=== PATIENT | male | born 1940 | race Caucasian/White ===

== ENCOUNTER 2016-09-05 01:27 | Day surgery (SDC) | payer MEDICARE ==
[~2016-09-05] VITALS: Ht 167.6 cm; Wt 72.6 kg
[~2016-09-05 01:27] MED LIST: AMLO10TA3 PO; GABA600T2 PO; NORT10SO PO; OMEP20CA11 PO
[2016-09-05] MEDS ORDERED: Propofol 10,000 mCg/mL 20 mL Inj ONE (01:28)
[2016-09-05] MEDS ORDERED: fentaNYL-PF 50 mCg/mL 2 mL Inj ONE (01:28)
[2016-09-05] MEDS ORDERED: Lactated Ringer's 1,000 ML IV ONE (06:00)
[2016-09-05 13:20] VITALS: BP 158/71; PULSE 65; RESP 16; O2SAT 99
[2016-09-05 14:49] VITALS: BP 94/42; PULSE 84; RESP 12; O2SAT 98
[2016-09-05 14:58] VITALS: BP 108/52; PULSE 83; RESP 12; O2SAT 98
--- NOTE | 2016-09-05 15:08 | PCM.HPANE ---
Patient Data Surgeon Admitting Provider: Attending Provider:Rogelio Sosa MD Primary Care Physician:Amanda White MD Other Provider:Alanna Templetoningham Anesthesia Reason for Visit Dysphagia Ht/WT & BMI Body Mass Index Allergies Coded Allergies: erythromycin ethylsuccinate (Verified Allergy, Severe, "MYCINS" CAUSE RASH , 10/25/15) tamsulosin (Verified Allergy, Unknown, 10/25/15) Past Anesthesia History Anesthesia History: Denies:: Abnormal Airway, Anesthesia Reactions, Difficult Intubation, Fam Anesthesia Reaction, Fam Malignant Hypertherm, Malignant Hyperthermia Diabetes History Hx Diabetes?: No MRSA MRSA: No Medications Blood Thinner: Aspirin Reported Medications Nortriptyline 10 Mg/5 Ml [id number] Mg PO 10/20/15 Amlodipine 10 Mg [id number] Mg PO DAILY Ref 0 10/20/15 Gabapentin 600 Mg Trhhwt044 Mg PO BID Ref 0 09/06/15 Omeprazole 20 Mg Capsule.dr20 Mg PO BID acid reflux Ref 0 02/10/15 History History of ENT Problems?: Yes HEENT History: Positive for:: Cataracts (S/P LT EXTRACTION (RECENTLY)) Dysphagia Denies:: Abnormal Airway Difficult Intubation Hearing Problem Denture Type: Full- Upper Teeth Condition: Within Normal Limits Hx of Heart Problems?: Yes Cardiovascular History: Positive for:: Cardiac Surgery (REMOTE HX OF ANGIOPLASTY) Chest Pain ([place] 20 YRS AGO W/O CURRENT PROBLEMS) Hypertension Denies:: AICD Atrial Fibrillation Congestive Heart Failure Pacemaker Valvular Heart Disease Hx of Respiratory Problem?: Yes Respiratory History: Denies:: Asthma COPD Cough Hemoptysis Pneumonia Tuberculosis Use of C-PAP Machine (SNORES) Hx Neurologic Problems?: No Neurological History: Positive for:: CVA (02/16/2015) Hx of GI Problems?: Yes Hx of Problems?: Yes Male Hx: Denies:: Prostate Problems Scrotal Mass Testicular Surgery Skin History: Positive for:: History Skin Disorders? (LG SEBACEOUS CYST ON BACK=CURRENT PROBLEMS OTHER JOSE. CYSTS PRESENT) Denies:: Pressure Ulcers Hx Musculoskeletal Problems?: Yes Musculoskeletal History: Denies:: Joint Replacement Hx of Psycho/Social Problems?: No Psycho Social History: Denies:: Anxiety Hx Depression Hx Surgeries?: Yes (Cervical fusion, rib resection, bone graft, ) Hx Any Other Health Problems?: Yes Other History: Denies:: Cancer Endocrine Disease Hospitalization Thyroid Disease History Blood Transfusions: Denies:: Blood Transfusions Hx Diabetes: No Hx Alcohol Use: NoHx Substance Use: No Smoking Status: Former Smoker Have You Smoked inLast 12 mo: No Stop/Bang Risk Assessment Category Category 1A: Patient has history of documented sleep apnea, and HAS NOT received any narcotic, sedative or anesthesia administration during this stay. Category 1B: Patient has history of documented sleep apnea, and HAS received any narcotic , sedative or anesthesia administration during this stay Category 2: Patient has SUSPECTED Obstructive Sleep Apnea, and HAS received any narcotic , sedative or anesthesia administration during this stay. Category 3: Patient has SUSPECTED Obstructive Sleep Apnea and HAS NOT received narcotic, sedative or anesthesia administration during this stay. Category 4: Outpatient in Procedural Areas with known sleep apnea or who screen positive for High Risk via the STOP/BANG questionnaire. Exam Exam Vital Signs Vital Signs Date Time Temp Pulse Resp B/P Pulse Ox O2 Delivery O2 Flow Rate FiO2 09/05/16 13:20 36.5 65 16 158/71 99 Room Air General Appearance: Alert, Oriented X3, Cooperative, No Acute Distress HEENT/AIRWAY: MP 2 Lungs: Clear to Auscultation, Normal Air Movement Heart: Exam Unremarkable, Regular Rate/Rhythm, No Murmurs/Rubs/Gallops Plan Impression Patient chart reviewed, patient interviewed and anesthestic plan with risks, benefits, and alternatives discussed, and informed consent obtained. ASA Physical Status: ASA3 Severe Disease Anesthetic Plan: MAC Bene/Risks/Altern/Consents: Yes HP Complete Prior to Induction: Yes Ron Skinner MD September 05, 2016 13:28
--- NOTE | 2016-09-05 23:11 | ENDO ---
[address] [address] ENDOSCOPY PROCEDURE PATIENT: KIRBY JAMIL : 1940 MR#: [id number] ADMIT: 09/05/2016 JOB ID: [id number] DATE: 09/05/2016 PRIMARY PROVIDER: Amanda White MD PROCEDURE: Esophagogastroduodenoscopy with balloon dilatation. INDICATIONS: A 76-year-old male with a history of stricture of the esophagus status post balloon dilatation. Biopsies were astonishingly negative for Gutierrez's but clinically this looks like Gutierrez's. She has had increasing dysphagia over the last 6-7 months. EQUIPMENT: GIF H 180 J. SEDATION: Monitored anesthesia as provided by Dr. Ron Skinner (for coronary artery disease.) COMPLICATIONS: None identified. PROCEDURE IN DETAIL: After the risks and benefits were explained, written and verbal informed consent was obtained. The patient was brought into the endoscopy suite and placed into the left lateral decubitus position. Sedation was achieved as above. The scope was introduced into the mouth through the bite block, and advanced ultimately to the second portion of the duodenum after dilatation was accomplished. Retroflexed views were pursued in the stomach. The stomach was decompressed. The scope removed from the patient who tolerated the procedure well. FINDINGS: 1. Esophagus: At around 25 cm from the incisors was an ulcerated stenosis, smooth in nature, this did not suggest underlying neoplasia. There was no mucosal irregularity. Proximal to the stricture, there was some mild ulceration, likely a consequence of some stasis change. The lumen size was perhaps somewhere in the 7 mm range. I could not get the endoscope to pass spontaneously. We dilated using an 8-10 balloon, holding it for 1 minute at each increment. I then swapped this out for the 10-12 balloon and dilated at 11 and 12 mm for 1 minute each. We then easily passed the scope down into the stomach. The scope was advanced to the duodenum, as described above. Below this stenosis in the esophagus appeared to be salmon-colored mucosa suggestive of underlying Gutierrez's as was previously suspected. The diaphragmatic pinchcock was at about 40 cm from the incisors and the GE junction appeared to be about 36 cm from the incisors. 2. Stomach: No significant pathology throughout including retroflexed views. 3. Duodenum: No significant pathology from the bulb through to the second portion. ENDOSCOPIC DIAGNOSES: 1. Ulcerated proximal esophageal stenosis, status post balloon dilatation to 12 mm. 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 3. Hiatal hernia. RECOMMENDATIONS: 1. The patient is encouraged to continue b.i.d. PPI. 2. Repeat EGD 2-3 weeks with anesthesia in a 45 minute slot for repeat dilatation and segmental esophageal biopsies. 3. Continue dietary caution as before. Pureed diet advancing to extremely well-chewed food only as tolerated.
== END 2016-09-05 23:59 | disposition home or self-care (01) ==
LOC: END 01:27
PROVIDERS: ATTEND Internal Medicine Gastroenterology
DX: K44.9 Diaphragmatic hernia without obstruction or gangrene (principal); K22.2 Esophageal obstruction; R13.10 Dysphagia, unspecified; I25.10 Atherosclerotic heart disease of native coronary artery without angina pectoris; I10 Essential (primary) hypertension; I63.9 Cerebral infarction, unspecified; G81.90 Hemiplegia, unspecified affecting unspecified side; M48.06 Spinal stenosis, lumbar region; K57.30 Diverticulosis of large intestine without perforation or abscess without bleeding; Z79.82 Long term (current) use of aspirin; Z87.891 Personal history of nicotine dependence
CPT/HCPCS: 43249; J3010; J7120

== ENCOUNTER 2016-10-01 13:44 | Day surgery (SDC) | payer MEDICARE ==
[~2016-10-01] VITALS: Ht 167.6 cm; Wt 72.6 kg
[~2016-10-01 13:44] MED LIST changes: +0.9% Sodium Chloride 1,000 ML IV SCH; +Lactated Ringer's 1,000 ML IV ONE; +Sodium Chloride LOK Flush 10 mL Syringe IV PRN; +fentaNYL-PF 50 mCg/mL 2 mL Inj IVPUSH PRN
[2016-10-01] MEDS ORDERED: fentaNYL-PF 50 mCg/mL 2 mL Inj ONE (13:45)
[2016-10-01] MEDS ORDERED: Propofol 10,000 mCg/mL 20 mL Inj ONE (13:45)
[2016-10-01] MEDS ORDERED: ASPI-973 PO (14:34)
[2016-10-01 14:35] VITALS: BP 150/71; PULSE 64; RESP 14; O2SAT 99
--- NOTE | 2016-10-01 15:24 | PCM.HPANE ---
Patient Data Date of Service: Oct 01, 2016 Surgeon Admitting Provider: Attending Provider:Rogelio Sosa MD Primary Care Physician:Amanda White MD Other Provider:Stoney Templeton Anesthesia Reason for Visit Esophageal Stricture Ht/WT & BMI Height (Feet): 5 Height (Inches): 6 Weight (Kilograms): 72.57 Body Mass Index 25.00 Allergies Coded Allergies: erythromycin ethylsuccinate (Verified Allergy, Severe, "MYCINS" CAUSE RASH , 10/25/15) tamsulosin (Verified Allergy, Unknown, 10/25/15) Past Anesthesia History Anesthesia History: Denies:: Abnormal Airway, Anesthesia Reactions, Difficult Intubation, Fam Anesthesia Reaction, Fam Malignant Hypertherm, Malignant Hyperthermia Diabetes History Hx Diabetes?: No MRSA MRSA: No Medications Blood Thinner: Aspirin Last Dose Blood Thinner: Sep 30, 2016 Reported Medications Aspirin 81 Mg Fahoth05 Mg PO DAILY Ref 0 10/01/16 Nortriptyline 10 Mg/5 Ml [id number] Mg PO 10/20/15 Amlodipine 10 Mg Fvtfzs25 Mg PO DAILY Ref 0 10/20/15 Gabapentin 600 Mg Gosays857 Mg PO BID Ref 0 09/06/15 Omeprazole 20 Mg Capsule.dr20 Mg PO BID acid reflux Ref 0 02/10/15 History History of ENT Problems?: Yes HEENT History: Positive for:: Cataracts (S/P LT EXTRACTION (RECENTLY)) Dysphagia (improved after last dilation) Denies:: Abnormal Airway Difficult Intubation Hearing Problem Denture Type: None Teeth Condition: Within Normal Limits Hx of Heart Problems?: Yes Cardiovascular History: Positive for:: Cardiac Surgery (REMOTE HX OF ANGIOPLASTY) Chest Pain ([place] 20 YRS AGO W/O CURRENT PROBLEMS) Hypertension Denies:: AICD Atrial Fibrillation Congestive Heart Failure Pacemaker Valvular Heart Disease Hx of Respiratory Problem?: No Respiratory History: Denies:: Asthma COPD Cough Hemoptysis Pneumonia Tuberculosis Use of C-PAP Machine (SNORES) Hx Neurologic Problems?: No Neurological History: Positive for:: CVA (02/16/2015) Hx of GI Problems?: Yes Hx of Problems?: Yes Male Hx: Denies:: Prostate Problems Scrotal Mass Testicular Surgery Skin History: Positive for:: History Skin Disorders? (LG SEBACEOUS CYST ON BACK=CURRENT PROBLEMS OTHER JOSE. CYSTS PRESENT) Denies:: Pressure Ulcers Hx Musculoskeletal Problems?: Yes Musculoskeletal History: Denies:: Joint Replacement Hx of Psycho/Social Problems?: No Psycho Social History: Denies:: Anxiety Hx Depression Hx Surgeries?: Yes (Cervical fusion, rib resection, bone graft, ) Hx Any Other Health Problems?: Yes Other History: Denies:: Cancer Endocrine Disease Hospitalization Thyroid Disease History Blood Transfusions: Denies:: Blood Transfusions Hx Diabetes: No Hx Alcohol Use: NoHx Substance Use: No Smoking Status: Former Smoker Have You Smoked inLast 12 mo: No Stop/Bang Treated for Sleep Apnea?: No Do You Have a CPAP Machine?: No S-Snoring: Do You Snore Loudly: No T-Tired: feel tired, fatigued: No O-Obsered: Observed not breath: No P-Blood Pressure: treated: No B- Body Mass Index > 35 kg/m2: No A- Age over 50: Yes N- Neck Large Circumference: No G- Gender Male: Yes MIGUEL Total Score: 2 Risk Assessment Category Category 1A: Patient has history of documented sleep apnea, and HAS NOT received any narcotic, sedative or anesthesia administration during this stay. Category 1B: Patient has history of documented sleep apnea, and HAS received any narcotic , sedative or anesthesia administration during this stay Category 2: Patient has SUSPECTED Obstructive Sleep Apnea, and HAS received any narcotic , sedative or anesthesia administration during this stay. Category 3: Patient has SUSPECTED Obstructive Sleep Apnea and HAS NOT received narcotic, sedative or anesthesia administration during this stay. Category 4: Outpatient in Procedural Areas with known sleep apnea or who screen positive for High Risk via the STOP/BANG questionnaire. Exam Exam Vital Signs Vital Signs Date Time Temp Pulse Resp B/P Pulse Ox O2 Delivery O2 Flow Rate FiO2 10/01/16 14:35 64 14 150/71 99 Room Air General Appearance: Alert, Oriented X3 HEENT/AIRWAY: MP 2 Lungs: Clear to Auscultation Heart: Exam Unremarkable, Regular Rate/Rhythm, No Murmurs/Rubs/Gallops Meds/Labs/Diagnostics Admission Meds Current Medications Lactated Ringer's (Lr) 1,000 ml @ 120 mls/hr Q8H20M ONCE IV Last administered on 10/01/16t 14:37; Start 10/01/16 at 05:00; Stop 10/01/16 at 13:19; Status DC Plan Impression Patient chart reviewed, patient interviewed and anesthestic plan with risks, benefits, and alternatives discussed, and informed consent obtained. ASA Physical Status: ASA3 Severe Disease Anesthetic Plan: GA Bene/Risks/Altern/Consents: Yes HP Complete Prior to Induction: Yes Justyn Astudillo MD Oct 01, 2016 15:16
[2016-10-01 16:07] VITALS: BP 113/59; PULSE 54; RESP 16; O2SAT 96
[2016-10-01 16:17] VITALS: BP 125/62; PULSE 57; RESP 16; O2SAT 96
--- NOTE | 2016-10-01 16:25 | PCM.ANEP1 ---
Post Anesthesia PACU Phase 1 Assessment Date of Service: Oct 01, 2016 Vital Signs Vital Signs Date Time Temp Pulse Resp B/P Pulse Ox O2 Delivery O2 Flow Rate FiO2 10/01/16 14:35 64 14 150/71 99 Room Air Anesthetic Administered: GA Level of Alertness: Awake, talking SERRANO's with Equal Strength: Yes Pain: No Nausea or Vomiting: No CV Function & Hydration Stable: Yes Airway Device: Lungs: Clear to Auscultation PACU Phase 2 Assessment Complications: No Follow up Care: No Patient Instructions Provided: N/A Justyn Astudillo MD Oct 01, 2016 16:24
[2016-10-01 16:27] VITALS: BP 137/65; PULSE 65; RESP 16; O2SAT 96
--- NOTE | 2016-10-02 00:52 | ENDO ---
[address] [address] ENDOSCOPY PROCEDURE PATIENT: KIRBY JAMIL : 1940 MR#: [id number] ADMIT: 10/01/2016 JOB ID: [id number] DATE: 10/01/2016 PRIMARY PROVIDER: Amanda White MD PROCEDURE: Esophagogastroduodenoscopy with balloon dilatation and biopsies. INDICATIONS: A 76-year-old male with mid esophageal stricture with significant clinical improvement following the last dilatation. He returns for further dilatation today. Historically, biopsies in the distal esophagus were negative for specialized intestinal metaplasia, although visually it appeared suggestive of a long segment of Gutierrez's. EQUIPMENT: GIF-H180-J. SEDATION: Monitored anesthesia as provided by Dr. Justyn Astudillo. COMPLICATIONS: None identified. PROCEDURE INFORMATION: After the risks and benefits were explained, written and verbal informed consent was obtained. The patient was brought into the endoscopy suite and placed into the left lateral decubitus position. Sedation was achieved using the above-stated medications with the addition of oxygen via nasal cannula. The scope was introduced into the mouth through the bite block, and advanced to the mid esophagus. I could not get through the mildly ulcerated stricture at 25 cm from the incisors, although lumen size was much more generous than at the last exam. We passed a wire downstream and then dilated at 10, 11 and 12 mm, holding the balloon for 1 minute at each setting. I was then able to easily advance the scope down into stomach all the way to the duodenum. We slowly withdrew and retroflexed views from within the stomach were accomplished. A 2nd dilatation was performed using the 12-15 mm balloon. We held it across the stricture at the 13.5 and 15 mm settings for 1 minute at each. I then pursued distal biopsies in the distal esophagus to once again evaluate for the presence of specialized intestinal metaplasia. The stomach was decompressed, the scope then removed from the patient who tolerated the procedure well. FINDINGS: 1. Duodenum: No pathology identified from the bulb through to the second portion. 2. Stomach: No ulcers, no mass lesions. No outlet obstruction. Fairly J-shaped stomach. Retroflexed views disclosed a small sliding hiatal hernia. 3. Esophagus: The GEJ was at about 35 cm from the incisors. The diaphragmatic pinchcock was at about 39 cm from the incisors. The salmon-colored mucosa appeared to extend all the way up to the level of the stricture at 25 cm from the incisors. I did not see any evidence of nodularity, erosive change or other pathology throughout the distal esophagus. We nonetheless took some repeat biopsies for exclusion of specialized intestinal metaplasia. The stenosis itself appeared smooth and slightly ulcerated in the 4 o'clock location, again thought to likely represent some stasis change. The balloon dilatation was successful and, after the final 15 mm setting, we very easily were able to pass the endoscope up and down the esophagus. ENDOSCOPIC DIAGNOSES: 1. Mid esophageal stricture, status post balloon dilatation to 15 mm. 2. 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 3. Hiatal hernia. RECOMMENDATIONS: 1. Await histopathology. 2. Continue extreme caution with meals. The patient is encouraged to gravitate towards the dysphagia puree type diet and advance to fully masticated food only as tolerated. 3. Continue twice daily omeprazole. 4. Repeat EGD in approximately 3-4 weeks for repeat dilatation.
--- NOTE | 2016-10-03 16:08 | PATH ---
SURGICAL PATHOLOGY Attending Physician:Joleen Chaudhry CASE STATUS: Signed Out PATIENT NAME: KIRBY JAMIL JR PID: [id number] : 1940 DATE COLLECTED:10/01/2016 00:00 SPECIMEN: Esophagus, Biopsy CLINICAL HISTORY: DYSPLASIA 1. DISTAL ESOPHAGUS BX FINAL DIAGNOSIS: 1.DISTAL ESOPHAGUS BIOPSY: FRAGMENTS OF COLUMNAR MUCOSA WITH NO DIAGNOSTIC ABNORMALITY. Negative for intestinal metaplasia. Negative for dysplasia and malignancy. No well-preserved squamous mucosa identified for evaluation. ICD10 K20.9 GROSS DESCRIPTION: Received in formalin, labeled with the patient' s name and "DE", are two fragments of landers, soft tissue ranging in size from less than 0.1 cm by less than 0.1 cm by less than 0.1 cm to 0.1 x 0.1 x 0.1 cm. All fragments are totally submitted in one cassette. ([id number]) MICRO DESCRIPTION: See diagnosis. ICD-9 CODES: CPT CODES: 1: 36054 Electronically Signed Out Maddi Sharif MD [facility] [address], [place] [address] Technical component performed at [facility], [address] [place] [address] Ave[address], [place], [address]
== END 2016-10-01 23:59 | disposition home or self-care (01) ==
LOC: END 13:44
PROVIDERS: ATTEND Internal Medicine Gastroenterology
DX: K22.2 Esophageal obstruction (principal); K22.70 Barrett's esophagus without dysplasia; K44.9 Diaphragmatic hernia without obstruction or gangrene; I10 Essential (primary) hypertension; I25.10 Atherosclerotic heart disease of native coronary artery without angina pectoris
CPT/HCPCS: 43239; 43249; J3010; J7120

== ENCOUNTER → 2016-11-06 | Day surgery (SDC) | payer MEDICARE ==
[~2016-11-06] VITALS: Ht 167.6 cm; Wt 75.0 kg
[~2016-11-06] MED LIST changes: -0.9% Sodium Chloride 1,000 ML IV SCH; +ASPI-973 PO; +Atropine 0.4 mg/mL Inj IVPUSH PRN; +DOCU-41 PO; +HYDR-4003 PO; +Lactated Ringer's 1,000 ML IV SCH; +MetoCLOpramide 5 mg/mL 2 mL Inj IVPUSH PRN; +Ondansetron 2 mg/mL 2 mL Inj IVPUSH PRN; +Propofol 10,000 mCg/mL 20 mL Inj ONE; -Sodium Chloride LOK Flush 10 mL Syringe IV PRN; -fentaNYL-PF 50 mCg/mL 2 mL Inj IVPUSH PRN
[2016-11-06 08:09] VITALS: BP 154/73; PULSE 63; RESP 16; O2SAT 100
--- NOTE | 2016-11-06 08:42 | PCM.HPANE ---
Patient Data Date of Service: Nov 06, 2016 Surgeon Admitting Provider: Attending Provider:Rogelio Sosa MD Primary Care Physician:Amanda White MD Other Provider:Stoney Templeton Anesthesia Reason for Visit Dysphasia Ht/WT & BMI Height (Feet): 5 Height (Inches): 6 Weight (Kilograms): 75 Body Mass Index 26.00 Allergies Coded Allergies: erythromycin ethylsuccinate (Verified Allergy, Severe, "MYCINS" CAUSE RASH , 11/06/16) tamsulosin (Verified Allergy, Unknown, 11/06/16) Past Anesthesia History Anesthesia History: Denies:: Abnormal Airway, Anesthesia Reactions, Difficult Intubation, Fam Anesthesia Reaction, Fam Malignant Hypertherm, Malignant Hyperthermia Diabetes History Hx Diabetes?: No MRSA MRSA: No Medications Blood Thinner: Aspirin Hypertension Medication: No Home Meds Incl Beta Miya: No Reported Medications Aspirin 81 Mg Gqswpd41 Mg PO DAILY Ref 0 10/01/16 Gabapentin 600 Mg Grlndk052 Mg PO BID Ref 0 09/06/15 Omeprazole 20 Mg Capsule.dr20 Mg PO BID acid reflux Ref 0 02/10/15 Discontinued Reported Medications Nortriptyline 10 Mg/5 Ml Txbnzlwo18 Mg PO 10/20/15 Amlodipine 10 Mg Zrjfzf89 Mg PO DAILY Ref 0 10/20/15 History History of ENT Problems?: Yes HEENT History: Positive for:: Cataracts (S/P LT EXTRACTION (RECENTLY)) Dysphagia (improved after last dilation) Denies:: Abnormal Airway Difficult Intubation Hearing Problem Denture Type: Full- Upper Teeth Condition: Within Normal Limits Hx of Heart Problems?: Yes Cardiovascular History: Positive for:: Cardiac Surgery (REMOTE HX OF ANGIOPLASTY) Chest Pain ([place] 20 YRS AGO W/O CURRENT PROBLEMS) Hypertension Denies:: AICD Atrial Fibrillation Congestive Heart Failure Pacemaker Valvular Heart Disease Hx of Respiratory Problem?: No Respiratory History: Denies:: Asthma COPD Cough Hemoptysis Pneumonia Tuberculosis Use of C-PAP Machine (SNORES) Hx Neurologic Problems?: No Neurological History: Positive for:: CVA (02/16/2015, slightly numbness in leg ) Hx of GI Problems?: Yes Hx of Problems?: Yes Male Hx: Denies:: Prostate Problems Scrotal Mass Testicular Surgery Skin History: Positive for:: History Skin Disorders? (LG SEBACEOUS CYST ON BACK=CURRENT PROBLEMS OTHER JOSE. CYSTS PRESENT) Denies:: Pressure Ulcers Hx Musculoskeletal Problems?: Yes Musculoskeletal History: Denies:: Joint Replacement Hx of Psycho/Social Problems?: No Psycho Social History: Denies:: Anxiety Hx Depression Hx Surgeries?: Yes (Cervical fusion, rib resection, bone graft, ) Hx Any Other Health Problems?: Yes Other History: Denies:: Cancer Endocrine Disease Hospitalization Thyroid Disease History Blood Transfusions: Denies:: Blood Transfusions Hx Diabetes: No Hx Alcohol Use: NoHx Substance Use: No Smoking Status: Former Smoker Have You Smoked inLast 12 mo: No Stop/Bang Treated for Sleep Apnea?: No Do You Have a CPAP Machine?: No Risk Assessment Category Category 1A: Patient has history of documented sleep apnea, and HAS NOT received any narcotic, sedative or anesthesia administration during this stay. Category 1B: Patient has history of documented sleep apnea, and HAS received any narcotic , sedative or anesthesia administration during this stay Category 2: Patient has SUSPECTED Obstructive Sleep Apnea, and HAS received any narcotic , sedative or anesthesia administration during this stay. Category 3: Patient has SUSPECTED Obstructive Sleep Apnea and HAS NOT received narcotic, sedative or anesthesia administration during this stay. Category 4: Outpatient in Procedural Areas with known sleep apnea or who screen positive for High Risk via the STOP/BANG questionnaire. Exam Exam Vital Signs Vital Signs Date Time Temp Pulse Resp B/P Pulse Ox O2 Delivery O2 Flow Rate FiO2 11/06/16 08:09 36.0 63 16 154/73 100 Room Air General Appearance: Alert, Oriented X3, Cooperative HEENT/AIRWAY: MP 2, Neck Movement (Slighly limited), Mouth Opening (Wide) Lungs: Clear to Auscultation, Normal Air Movement Heart: Regular Rate/Rhythm, Normal S1, Normal S2 Plan Impression Patient chart reviewed, patient interviewed and anesthestic plan with risks, benefits, and alternatives discussed, and informed consent obtained. NPO per Anesth. Guidelines: Yes ASA Physical Status: ASA3 Severe Disease Anesthetic Plan: MAC Bene/Risks/Altern/Consents: Yes HP Complete Prior to Induction: Yes Vini Kennedy MD Nov 06, 2016 08:13
[2016-11-06 09:06] VITALS: BP 87/56; PULSE 54; O2SAT 98
--- NOTE | 2016-11-06 09:18 | PCM.ANEP1 ---
Post Anesthesia PACU Phase 1 Assessment Date of Service: Nov 06, 2016 Vital Signs Vital Signs Date Time Temp Pulse Resp B/P Pulse Ox O2 Delivery O2 Flow Rate FiO2 11/06/16 09:06 36.1 54 87/56 98 Room Air 11/06/16 08:09 36.0 63 16 154/73 100 Room Air Anesthetic Administered: MAC Level of Alertness: Sleeping, hard to arouse SERRANO's with Equal Strength: No (baseline) Pain: No Nausea or Vomiting: No CV Function & Hydration Stable: Yes Airway Device: Oxygen Delivery: Room Air Lungs: Normal Air Movement PACU Phase 2 Assessment Complications: No Follow up Care: N/A Patient Instructions Provided: N/A Vini Kennedy MD Nov 06, 2016 09:18
[2016-11-06 09:21] VITALS: BP 115/54; PULSE 58; O2SAT 99
--- NOTE | 2016-11-06 09:33 | ENDO ---
[address] [address] ENDOSCOPY PROCEDURE PATIENT: KIRBY JAMIL : 1940 MR#: [id number] ADMIT: 11/06/2016 JOB ID: [id number] DATE: 11/06/2016 PRIMARY PROVIDER: Amanda White M.D. PROCEDURE: Esophagogastroduodenoscopy with biopsies. 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 However, under the microscope, he has not demonstrated specialized intestinal metaplasia. He was last dilated up to 15 mm and since then he has had a great clinical effect without any significant challenges with swallowing. He remains on omeprazole once per day. Repeat examination today is pursued to determine whether he needs further dilatation. EQUIPMENT: GIF H 180 J. SEDATION: Monitored anesthesia as provided by Dr. Vini Kennedy. COMPLICATIONS: None identified. PROCEDURAL INFORMATION: After the risks and benefits were explained, written and verbal informed consent was obtained. The patient was brought into the endoscopy suite and placed in the left lateral decubitus position. Sedation was achieved as above. The scope introduced into the mouth through the bite block, and advanced to the second portion of the duodenum. The scope was slowly withdrawn to carefully examine the mucosa for any defects or lesions. Retroflexed views were accomplished in the stomach. The stomach was decompressed. The scope removed from the patient who tolerated the procedure well. FINDINGS: 1. Duodenum: No pathology appreciated from the bulb through to the second portion. 2. Stomach: No outlet obstruction. No ulcers. No mass lesions. Hiatal hernia noted on retroflexed views. Otherwise, no significant pathology in the stomach. 3. Esophagus: The squamocolumnar junction definitely appeared to extend up into the tubular esophagus. The GE junction was at about 36 cm from the incisors. The pinchcock was at about 38 cm from the incisors. At this time, however, I did not appreciate any significant stenosis or stricturing. It was very easy to pass the scope all the way through the esophagus and I did not appreciate any obvious target for dilatation. There were some scattered erosions and even healing ulceration in the region of the previous dilatation and stricture. Photographs were taken and a couple more biopsies were acquired from the apex of what appeared to be Gutierrez's. We elected to not pursue dilatation today. ENDOSCOPIC DIAGNOSES: 1. Mid esophageal ulcerations and erosions. 2. Visual long segment Gutierrez's. 3. Hiatal hernia. RECOMMENDATIONS: 1. Await histopathology. 2. Continue completely well chewed food. 3. The patient is encouraged to take twice daily omeprazole considering the presence of erosions and ulceration still present. 4. A 24 hour pH on therapy to ensure sufficient acid control. 5. Followup in my office following the 24 hour pH to review clinical symptoms and determine the need for any future endoscopy. Most likely we will pursue this on an as needed basis.
--- NOTE | 2016-11-08 17:16 | PATH ---
SURGICAL PATHOLOGY Attending Physician:Joleen Chaudhry CASE STATUS: Signed Out PATIENT NAME: KIRBY JAMIL JR PID: [id number] : 1940 DATE COLLECTED:11/06/2016 17:04 SPECIMEN: Esophagus, Biopsy CLINICAL HISTORY: 1). ESOPHAGUS AT 26CM FINAL DIAGNOSIS: 1.ESOPHAGUS AT 26 CM, BIOPSY: INFLAMED PORTIONS OF COLUMNAR MUCOSA WITH NO DIAGNOSTIC ABNORMALITY. Negative for intestinal metaplasia by alcian blue studies; the control tissue stained appropriately. Negative for dysplasia and malignancy. ICD10 K20.9 GROSS DESCRIPTION: The specimen is received in one formalin filled container labeled with the patient's name, sublabeled "esophagus at 26 CM" and consists of 2 portions of tissue which aggregate to 0.2 x 0.2 x 0.2 CM. The specimen is entirely submitted in one cassette. 11/06/2016DC MICRO DESCRIPTION: See diagnosis. ICD-9 CODES: CPT CODES: 1: 78315, 64879 Electronically Signed Out Maddi Sharif MD [facility] [address], [place] [address] Technical component performed at [facility], [address] [place] [address] Ave[address], [place], [address]
== END | disposition home or self-care (01) ==
LOC: END 10-20 12:49
PROVIDERS: ATTEND Internal Medicine Gastroenterology
DX: K20.9 Esophagitis, unspecified (principal); K22.70 Barrett's esophagus without dysplasia; K44.9 Diaphragmatic hernia without obstruction or gangrene; R47.02 Dysphasia; I10 Essential (primary) hypertension; Z88.1 Allergy status to other antibiotic agents; Z88.8 Allergy status to other drugs, medicaments and biological substances; Z87.891 Personal history of nicotine dependence; Z79.899 Other long term (current) drug therapy; Z79.82 Long term (current) use of aspirin; Z86.73 Personal history of transient ischemic attack (TIA), and cerebral infarction without residual deficits
CPT/HCPCS: 43239; J7120

== ENCOUNTER 2016-11-07 08:44 | Emergency (ER) | payer MEDICARE ==
[~2016-11-07] VITALS: Ht 167.6 cm; Wt 72.7 kg
[~2016-11-07 08:44] MED LIST changes: -Atropine 0.4 mg/mL Inj IVPUSH PRN; -DOCU-41 PO; -HYDR-4003 PO; -Lactated Ringer's 1,000 ML IV ONE; -Lactated Ringer's 1,000 ML IV SCH; -MetoCLOpramide 5 mg/mL 2 mL Inj IVPUSH PRN; -Ondansetron 2 mg/mL 2 mL Inj IVPUSH PRN; -Propofol 10,000 mCg/mL 20 mL Inj ONE
[2016-11-07 08:47] VITALS: BP 165/73; PULSE 77; RESP 15; O2SAT 100
--- NOTE | 2016-11-07 09:05 | ED.REPORT ---
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 The pt had an EGD yesterday and was feeling fine until he woke up from a nap a few hours later, tried to get up and walk but fell to the ground. He associates the fall with severe, non-radiating "numbing and pulling pain" in his lumbar region. The pt had similar sx a couple of years ago, at which time he got a nerve stimulator implant. He only experiences the pain when standing and walking and reports relief when lying down.He took a Tylenol a couple of hours ago with little relief. The pt denies spasms, change in numbness in lower extremities from his CVA, dysuria, change in BM and any other pain post falling. The pt turned the implant in his back off after the fall. Nursing Notes Stated Complaint: DIFFICULTY WALKING Chief Complaint: General Complaint Nursing Notes Reviewed: Yes ([employer], [employer] not reconcieled) Allergies: Coded Allergies: erythromycin ethylsuccinate (Verified Allergy, Severe, "MYCINS" CAUSE RASH , 11/06/16) tamsulosin (Verified Allergy, Unknown, 11/06/16) Scheduled Aspirin (Aspirin) 81 Mg Tablet 81 MG PO DAILY Gabapentin (Gabapentin) 600 Mg Tablet 300 MG PO BID Omeprazole (Omeprazole) 20 Mg Capsule.dr 20 MG PO BID Scheduled PRN Docusate Sodium (Colace) 100 Mg Capsule 200 MG PO DAILY PRN PRN For Constipation Hydrocodone-Acetaminophen 5-325 mg (Hydrocodone-Acetaminophen 5-325 mg) 1 Each Tablet 0.5-2 TABLET PO Q4H PRN PRN For Pain General Time Seen by MD: 09:04 Chief Complaint Other (difficulty walking) Hx Obtained From: Patient Arrived By: Walk-in Sudden in Onset?: Yes Onset Occurred: Yesterday Symptom Duration: Since onset Location: : Back Quality: Painful (numbing and pulling pain) Radiation: : Does not radiate Severity: Current: No pain currently (while lying in bed) Severity: Maximum: Severe (when standing and walking) Recent Healthcare: No recent doctor visit Similar Sx Previous: Yes Past Medical History Past Medical History CAD, h/o ID Gutierrez's esophagus h/o CVA 01/2015 - Intracranial hemorrhage Past Surgical History esophagogstroduodenoscopy with biopsy (multiple EGD's, most recent 11/06/16 gastroesophageal junction, biopsy Coronary angioplasty Cervical fusion Rib resection h/o bone graft Nerve stimulator for back pain Reports: Cataract surgery Reports: Pacemaker insertion Smoking History Former Smoker Social History Alcohol Use: Denies alcohol use Drug Use: Denies drug use Other Social History: Good social support, Ambulatory Status Independent Review of Systems Reports: difficulty walking Denies: muscle spasms Denies: change in bowel movement Full Review of Systems Male: Denies Dysuria Musculoskeletal: Reports: Back pain Neurologic: Denies: Numbness (no new changes ) Complete sys rev & neg: except as marked. Physical Exam Vital Signs Vital Signs Date Time Temp Pulse Resp B/P Pulse Ox O2 Delivery O2 Flow Rate FiO2 11/07/16 11:30 65 18 125/50 97 Room Air 11/07/16 08:47 36.4 77 15 165/73 100 Room Air Initial VS: Reviewed, Vital signs normal Respiratory: Breath sounds normal, No respiratory distress Cardiovascular: Intact distal pulses Abdomen / GI: Soft, Non-tender, No guarding, No rebound, No distention Extremities: Vascular intact, Neuro intact, No swelling, No tenderness Skin: Warm, Dry, No cyanosis Neurologic: Alert, Oriented, Nonfocal General/Constitutional: Awake, Alert, No acute distress, Cooperative The pt is not in pain and reports feeling well. Not moving. Hoarse voice after a procedure yesterday. Back: Atraumatic, Straight leg raise neg Lower Extremity / Pelvis / MS: Atraumatic, Full range of motion, No swelling, Non-tender, No deformity, Neurologic intact, Vascular intact Chronic weakness in right leg. No drift. Chronic numbness in right leg compared to left leg. Ankle / Foot: Atraumatic, Full range of motion, No swelling, Non-tender, No deformity, Neurologic intact, Vascular intact Normal plantar and dorsiflexion of the foot. Interpretation & Diagnostics PROCEDURE: CT LUMBAR SPINE WITHOUT CONTRAST ([id number]) IMPRESSION: 1. Chronic L1 compression fracture resulting in approximately 40% loss of normal intervertebral height is stable compared to prior MRI obtained 12/31/11. 2. No acute vertebral body compression fractures. 3. Multilevel degenerative disease. 4. Multilevel facet arthropathy. Dictated by: Marychuy Saucedo MD, PhD on 11/07/2016 at 10:38 Approved by: Marychuy Saucedo MD, PhD on 11/07/2016 at 10:49 PROCEDURE: MRI LUMBAR SPINE WITHOUT CONTRAST ([id number]) IMPRESSION: 1. Multilevel degenerative disc disease. 2. Multilevel facet arthropathy. 3. Mild convex left scoliosis. 4. Trace L3-L4 degenerative spondylolisthesis. 5. Chronic L1 compression fracture stable compared to 12/31/11. No acute compression fractures. 6. Moderate L3-L4 and L4-L5 central canal narrowing. Mild L2-L3 central canal narrowing. 7. Mild right moderate left L1-L2 neural foramina appear severe right and moderate left L2-L3 and L3-L4 neural foraminal narrowing. Moderate right and severe left L4-L5 neural foraminal narrowing. Severe left L5-S1 neural foraminal narrowing. 8. L2-L3, L3-L4, L4-L5 and L5-S1 disc annulus fissures. Dictated by: Marychuy Saucedo MD, PhD on 11/07/2016 at 13:29 Approved by: Marychuy Saucedo MD, PhD on 11/07/2016 at 13:37 Lab Results Interpretation Result Diagram: 11/07/16 0932 11/07/16 0932 Test 11/07/16 09:32 White Blood Count 4.2th/mm3 (3.8-10.1) Red Blood Count 3.38mil/mm3 (4.40-5.80) Hemoglobin 11.3g/dL (13.8-17.2) Hematocrit 34.0% (41.0-50.0) Mean Corpuscular Volume 100.6fL (81-100) Mean Corpuscular Hemoglobin 33.4pg (27.0-35.0) Mean Corpuscular Hemoglobin Concent 33.2% (32.0-37.0) Red Cell Distribution Width 13.9% (12.3-15.4) Platelet Count 205bil/L (150-400) Neutrophils (%) (Auto) 51.2% (40-74) Lymphocytes (%) (Auto) 33.9% (14-46) Monocytes (%) (Auto) 12.0% (4-12) Eosinophils (%) (Auto) 2.2% (0-5) Basophils (%) (Auto) 0.2% (0-3) Prothrombin Time 10.0sec (8.1-12.5) Prothromb Time International Ratio 0.94ratio Sodium Level 144mEq/L (134-144) Potassium Level 4.0mEq/L (3.5-5.2) Chloride Level 106mEq/L (97-108) Carbon Dioxide Level 22mmol/L (18-29) Blood Urea Nitrogen 18mg/dL (8-27) Creatinine 1.04mg/dL (0.76-1.27) Estimat Glomerular Filtration Rate 74mL/min (>59) Glucose Level 184mg/dL (60-99) Calcium Level 8.9mg/dL (8.5-10.1) Total Bilirubin 1.1mg/dL (0.0-1.2) Aspartate Amino Transf (AST/SGOT) 16U/L (0-50) Alanine Aminotransferase (ALT/SGPT) 18U/L (0-44) Alkaline Phosphatase 66U/L (25-160) Total Protein 6.7g/dL (6.4-8.4) Albumin 3.9g/dL (3.4-5.0) Lab Results Interpretation: CBC normal CMP normal Re-Eval/Medical Decision Med Decision/Clinical Course This is a 76-year-old male presents with severe intractable back pain anytime he tries to immediately come to the point he is now unable to immediately. He reports he had an uneventful endoscopy yesterday, walked home following the procedure, took a nap, but when he got up he had terrible lumbar back pain, reports any time he gets up or moves his terrible back pain, as has been unable to and weight since. He denies bowel or bladder dysfunction, he denies new numbness or weakness-he has some chronic right lower extremity neuropathy following a stroke which she is on gabapentin., Reports no interval change. He reports at present lying in the gurney has no discomfort until or unless he tries to stand up and/or ambulate. He has had problems with back pain before and has a nerve stimulator, reports he has been doing very well for years since has been in place. He denies any recent injury. He denies fevers or chills or risk factors for epidural abscess. On exam lying flat he is comfortable, although he has pain with movement. He has midline lumbar discomfort. He can raise his legs, plantarflex dorsiflex, he has decreased sensation in the right leg which she says is chronic and unchanged-but he does not have gross deficits. Does however have moderate pain required titrated Dilaudid in the department. A CT was obtained with redemonstration of an old compression fracture, but no clear acute pathology. Given the severity pain and MRI was obtained, no acute pathology (a number of chronic findings are present) is identified. No findings of an acute neurosurgical emergency, no findings of an acute spinal infection. The patient has failed a PT evaluation in terms of road testing. He again comfortable at rest, but unable to and later function-and therefore admission for pain control is warranted. However, when I presented this to them-both patient and insisted would like to try going home. The and the patient indicate that they have a small home, the is comfortable trying to manage him at home, indicates he has a walker-dependent they will return if they have any difficulties. He is taking hydrocodone previously, in small doses and often takes only half a pill if needed-would like to try that, with the understanding that if he still having intractable pain, or is not safe at home and will return to the emergency department. The patient states intact decisional capacity, and the is in agreement that they would like to try at home-I do not think that is unreasonable. Routine precautions, return precautions reviewed. It was emphasized that they are having any difficulty or feel it is unsafe at home that they should return to the emergency department they agreed. Source of Hx: Old records Time of Eval: 15:08 Re-Evaluation/Progress Note: Rechecked pt. Discussed lab results, imaging results and diagnosis. He refuses admission. Discussed the plan to discharge. Pt understands and agrees with the plan. F/U instructions and RTER warning given. All questions addressedHe refuses admission. Consultation : Referral / Consult Name: Rogelio Sosa MD Call Returned at: 12:06 Cardiology Nurse Practitioner: Agrees with eval, Agrees with plan Note: Dr. Sosa, GI, agrees the pt's sx are not related to his procedure. Differential Diagnosis: Negative: Acute coronary syndrome, Diabetes mellitus, G -tube repair/replacement, Malingering, Medication refill, Mood disorder, Neutropenia, Pneumonia, Syncope, Tonsillitis, acute Counseled Regarding: Diagnosis, Lab results, Need for follow-up, When/why to return to ED Discharge & Departure Primary Impression: Back pain Back pain location: low back pain Chronicity: chronic Back pain laterality : unspecified Sciatica presence: unspecified whether sciatica present Qualified Code: M54.5 - Low back pain Disposition: Home (Patient declined hospitalization) Discharge Condition All VS Reviewed: Yes Additional Instructions: 1. No acute injury was appreciated on CT scan or MRI. 2. No heavy lifting - other activities as tolerated, but take it very easy. Use the walker. We are very concerned about you as you did not have much mobility on evaluation here in the ED, but you have declined hospitalization at this time. If you find that you are not safe or able to manage at home - RETURN to the emergency department! (Call 911 if needed!) 3. You can take hydrocodone/APAP 5/325 1/2 tab up to 1 (or 2) tabs every 4-6 hours. Note: This medication contains an narcotic and causes drowsiness. No driving or operating machinery while taking. Use sparingly, and only if needed. This medicine also can cause constipation-I recommend taking a stool softener daily while using. 4. Return to the emergency department if new, worsening or uncontrolled symptoms occur. 5. Follow up with Dr. White. Call for an appointment. Referrals: Amanda White MD (PCP) Scribe Attestation Portions of this note were transcribed by Paul San. I,, personally performed the history, physical exam and medical decision-making;I reviewed and confirmed the accuracy of the information in the transcribed note. Signed by Thomas Young. 11/07/16 15:48 copies to: Amanda White MD, Matthew F MD Nov 07, 2016 09:05 Paul San Nov 07, 2016 09:09
[2016-11-07] MEDS ORDERED: HYDROmorphone 0.5 mg/0.5 mL iSecure Syringe IVPUSH PRN (09:20)
[2016-11-07] MEDS ORDERED: Ondansetron 2 mg/mL 2 mL Inj IVPUSH ONE (09:20)
[2016-11-07 09:40] LABS: BASOPHILS % (AUTO) 0.2 % (0-3); EOSINOPHILS % (AUTO) 2.2 % (0-5); Mean Corpuscular Hemoglobin 33.4 pg (27.0-35.0); Mean Corpuscular Volume 100.6 fL (81-100); NEUTROPHILS % (AUTO) 51.2 % (40-74); Platelet Count 205 bil/L (150-400)
[2016-11-07 10:04] LABS: INR 0.94 ratio
--- NOTE | 2016-11-07 10:51 | DRSVH ---
PROCEDURE: CT LUMBAR SPINE WITHOUT CONTRAST ([id number]) INDICATIONS: back pain, fall TECHNIQUE: Noncontrast 3 mm thick sections acquired from the T12 level to the sacrum. Sagittal and coronal refo rmats were constructed. For radiation dose reduction, the following was used: automated exposure co ntrol. COMPARISON: [facility], MR, LUMBAR SPINE W/O CONTRAST, 12/31/2011, 13:03. FINDINGS: Image quality: Excellent. Bones: There is trace L3-L4 and L4-L5 degenerative spondylolisthesis. Mild convex left scoliosis is noted. Loss of height noted in the L1 vertebral body compatible anterior column compression fracture which is stable in appearance compared to prior MRI obtained 12/31/2011. No acute vertebral body comp ression fractures. No suspicious lytic or blastic bony lesions. Multilevel facet arthropathy noted. No pars defects. Soft tissues: Multilevel degenerative changes noted. No retroperitoneal masses or hematomas. Visual ized aorta is normal in caliber. IMPRESSION: 1. Chronic L1 compression fracture resulting in approximately 40% loss of normal intervertebral heigh t is stable compared to prior MRI obtained 12/31/11. 2. No acute vertebral body compression fractures. 3. Multilevel degenerative disease. 4. Multilevel facet arthropathy. Dictated by: Marychuy Saucedo MD, PhD on 11/07/2016 at 10:38 Approved by: Marychuy Saucedo MD, PhD on 11/07/2016 at 10:49
[2016-11-07 11:30] VITALS: BP 125/50; PULSE 65; RESP 18; O2SAT 97
--- NOTE | 2016-11-07 13:40 | DRSVH ---
PROCEDURE: MRI LUMBAR SPINE WITHOUT CONTRAST ([id number]) INDICATIONS: back pain TECHNIQUE: Noncontrast sagittal T1 spin echo and T2 fast echo, sagittal STIR, axial T1 and T2 fast spin echo thr ough the lumbar spine. In cases with scoliosis, additional coronal T2 fast spin echo may be performe d. COMPARISON: [facility], MR, LUMBAR SPINE W/O CONTRAST, 01/23/2010, 9:04. [facility], MR, LUMBAR SPINE W/O CONTRAST, 12/31/2011, 13:03. [facility], CT, CT CERVIC AL SPINE WO CON, 02/10/2015, 9:17. FINDINGS: Image quality: Excellent. Alignment and Curvature: There is trace L3-L4 anterolisthesis. There is mild convex-left scoliosis w hich is stable compared to prior examinations. Bone Marrow: Mild reactive endplate changes noted adjacent to the L2-L3, L3-L4, L4-L5 and L5-S1 discs . Anterior wedging of the L1 vertebral body compatible with chronic compression fractures stable comp ared to prior MRIs. No acute vertebral body compression fractures. Spinal Cord: Conus medullaris terminates at the T12-L1 disc level. Visualized cord demonstrates nor mal signal and size. Paraspinous Soft Tissues: No paravertebral masses. L1-L2: Loss of the signal. Mild, diffuse disc bulge. Left foraminal disc protrusion superimposed on d iffuse disc bulge. No central stenosis. Mild right and moderate left neural foraminal narrowing secon cristina to disc disease. L2-L3: Loss of disc signal and slight loss of disc height. Mild, diffuse disc bulge. Focal high densi ty zones noted and is compatible with fissures. Mild bilateral facet hypertrophy. Mild central canal secondary to disc disease and facet hypertrophy. Severe right and moderate left neural foraminal narr owing secondary to disc and facet disease. L3-L4: Loss of disc signal and height. Mild, diffuse disc bulge. Focal high intensity zones are noted in the posterior annulus compatible with a fissure. Moderate bilateral facet hypertrophy. Moderate n arrowing of the central canal secondary to disc disease and facet hypertrophy. Severe right and moder ate left neural foraminal narrowing secondary to disc and facet disease. L4-L5: Loss of disc signal and height. Mild, diffuse disc bulge with small central disc protrusion brower perimposed on diffuse disc bulge. Focal high intensity zone noted in the posterior annulus compatible with a fissure. Mild right and severe left facet hypertrophy. Moderate narrowing of the central miguel angel l secondary to disc disease and facet hypertrophy. Moderate right and severe left neural foraminal na rrowing secondary to disc and facet disease. L5-S1: Loss of disc space signal. Mild, diffuse disc bulge. Mild bilateral facet hypertrophy. Focal h igh density zone noted in the posterior annulus compatible with fissures. No central stenosis. Severe left neuroforaminal narrowing secondary to disc and facet disease. Right neural foramen is widely pa tent. IMPRESSION: 1. Multilevel degenerative disc disease. 2. Multilevel facet arthropathy. 3. Mild convex left scoliosis. 4. Trace L3-L4 degenerative spondylolisthesis. 5. Chronic L1 compression fracture stable compared to 12/31/11. No acute compression fractures. 6. Moderate L3-L4 and L4-L5 central canal narrowing. Mild L2-L3 central canal narrowing. 7. Mild right moderate left L1-L2 neural foramina appear severe right and moderate left L2-L3 and L3- L4 neural foraminal narrowing. Moderate right and severe left L4-L5 neural foraminal narrowing. Sever e left L5-S1 neural foraminal narrowing. 8. L2-L3, L3-L4, L4-L5 and L5-S1 disc annulus fissures. Dictated by: Marychuy Saucedo MD, PhD on 11/07/2016 at 13:29 Approved by: Marychuy Saucedo MD, PhD on 11/07/2016 at 13:37
--- NOTE | 2016-11-07 14:52 | NUR ---
Evaluation completed. Please go to "Notes" then click on "Assessments and Notes" (bottom left corner of screen). Then select appropriate discipline tab on top of screen.
[2016-11-07] MEDS ORDERED: HYDROcodone-APAP 5-325 mg Tablet PO ONE (15:20)
[2016-11-07] MEDS ORDERED: HYDR-4003 PO (15:27)
[2016-11-07] MEDS ORDERED: DOCU-41 PO (15:27)
[2016-11-07 15:56] VITALS: BP 167/50; PULSE 72; RESP 16; O2SAT 100
== END 2016-11-07 15:57 | disposition home or self-care (01) ==
LOC: SED 08:44
DX: M54.5 Low back pain (principal); R26.2 Difficulty in walking, not elsewhere classified; G62.9 Polyneuropathy, unspecified; I25.10 Atherosclerotic heart disease of native coronary artery without angina pectoris; I25.2 Old myocardial infarction; I10 Essential (primary) hypertension; Z96.9 Presence of functional implant, unspecified; Z86.73 Personal history of transient ischemic attack (TIA), and cerebral infarction without residual deficits; Z87.19 Personal history of other diseases of the digestive system; Z95.0 Presence of cardiac pacemaker; Z98.890 Other specified postprocedural states; Z87.891 Personal history of nicotine dependence; Z86.79 Personal history of other diseases of the circulatory system; Z79.82 Long term (current) use of aspirin; Z88.1 Allergy status to other antibiotic agents; Z88.8 Allergy status to other drugs, medicaments and biological substances
CPT/HCPCS: 36415; 72131; 72148; 80053; 85025; 85610; 96374; 97162; 99285; G8978; G8979; J2405

== ENCOUNTER → 2017-01-01 | Day surgery (SDC) | payer MEDICARE ==
[~2017-01-01] MED LIST changes: -AMLO10TA3 PO; +DOCU-41 PO; +HYDR-4003 PO; +Lidocaine Topical 2% 30 mL Jelly ONE; -NORT10SO PO
== END | disposition home or self-care (01) ==
LOC: END 00:56
PROVIDERS: ATTEND Internal Medicine Gastroenterology
DX: K21.9 Gastro-esophageal reflux disease without esophagitis (principal)